=== PATIENT | male | born 1990 | race American Indian/Alaskan Native ===

== ENCOUNTER 2016-08-21 09:32 | Emergency (ER) | payer SELFPAY ==
[2016-08-21 10:21] VITALS: BP 127/74
--- NOTE | 2016-08-21 14:08 | Emergency Department Report ---
HPI - General Chief Complaint: Extremity Injury, Lower Time Seen by Provider: 08/21/16 13:45 - HPI HPI: 36-year-old male presents with right posterior knee pain 2 weeks. Patient states about 2 weeks ago he was playing basketball and jumped and landed on it and heard a pop in his knee. Patient states he's been okay otherwise and did not go get it checked. Patient states about a week ago he still didn't pain with certain movements of that knee. Patient states he only has pain when he jumps runs or apply physical activity. Patient denies fever/chills/nausea/vomiting/loss of sensation, fracture, dislocation, ED Past Medical Hx - Past Medical History Previous Medical History?: No - Surgical History Past Surgical History?: Yes Hx Appendectomy: Yes - Social History Smoking Status: Current Some Day Smoker Substance Use Type: Alcohol - Medications Home Medications: Home Medications Medication Instructions Recorded Confirmed Last Taken Type Cyclobenzaprine [Flexeril] 10 mg PO QHS PRN #20 tablet 08/21/16 Unknown Rx Ibuprofen [Motrin] 800 mg PO Q8HR PRN #30 tablet 08/21/16 Unknown Rx ED Review of Systems ROS: Stated complaint: RT KNEE PAIN Other details as noted in HPI Constitutional: denies: chills, fever, malaise, weakness Eyes: denies: eye pain, eye discharge, vision change ENT: denies: ear pain, throat pain Respiratory: denies: cough, shortness of breath, wheezing Cardiovascular: denies: chest pain, palpitations Endocrine: no symptoms reported Gastrointestinal: denies: abdominal pain, nausea, diarrhea, constipation, hematemesis Genitourinary: denies: urgency, dysuria, frequency, hematuria, discharge, testicular pain, testicular mass Musculoskeletal: arthralgia. denies: back pain, joint swelling, myalgia Skin: denies: rash, lesions Neurological: denies: headache, weakness, numbness, paresthesias, confusion, abnormal gait, vertigo Psychiatric: denies: anxiety, depression, auditory hallucinations Hematological/Lymphatic: denies: easy bleeding, easy bruising, swollen glands Physical Exam - Physical Exam Vital Signs: Vital Signs 08/21/16 10:19 Temperature 97.5 F L Pulse Rate 53 L Respiratory 16 Rate Blood Pressure 127/74 O2 Sat by Pulse 100 Oximetry Physical Exam: GENERAL: Alert and oriented x3, no apparent distress, Normal Gait, atraumatic. HEAD: Head is normocephalic and a-traumatic. EYES: Extra ocular muscles are intact. Pupils are equal, round, and reactive to light and accommodation. EARS: symetrical, atraumatic, gross auditory nml bilaterally. NOSE: Nose symetrical, Nontender,Nares appeared normal. MOUTH:Mouth is well hydrated and without lesions. Patent airways. NECK: Supple. Non edematous, No carotid bruits. No lymphadenopathy or thyromegaly. LUNGS: Symetrical with respiration, No wheezing, no rales or crackles, CTAB. HEART: S1, S2 present, regular rate and rhythm without murmur, no rubs, no gallops. ABDOMEN: No organomegaly was noted,Positive bowel sounds, soft, and non- distended. . Nontender to palpation on all Quadrants, NO CVA tenderness. EXTREMITIES/MUSCULOSKELETAL: No cyanosis, clubbing, rash, lesions or edema. Full ROM bilaterally. UE/LE Pulses 2+ bilaterally. LE and UE 5+ strength bilaterally. Nontender to palpation of the anterior/posterior knee. Mild tenderness to palpation of the lateral aspect of the knee. Knee is nonerythematous, nonedematous. Tenderness bilaterally. Valgus and varus maneuver shows no tenderness NEUROLOGIC: No focal Deficit, Cranial nerves II through XII are grossly intact. No loss of sensation, SKIN: Warm and dry, No lesions, No ulceration or induration present. ED Course Vital Signs 08/21/16 10:19 Temperature 97.5 F L Pulse Rate 53 L Respiratory 16 Rate Blood Pressure 127/74 O2 Sat by Pulse 100 Oximetry ED Medical Decision Making - Medical Decision Making 26-year-old male presents with arthralgia secondary to injury Vital signs are stable patient is in no acute or respiratory distress. . ED course: Patient has full range of motion of knee. Discussed with patient knee injury takes anywhere from 4-8 weeks to completely heal. Discussed follow-up with orthopedic. Discussed the patient to take medication as prescribed. Discussed rest of knee. Discussed knee exercises and no physical activity onto knees completely healed. Knee joints and ligaments are intact. Discussed continue heat compressions 3 times a day. Patient states he verbally understands and will follow up. Critical care attestation.: If time is entered above; I have spent that time in minutes in the direct care of this critically ill patient, excluding procedure time. ED Disposition Clinical Impression: Injury of knee, ligament Qualifiers: Encounter type: initial encounter Laterality: right Qualified Code(s): S89.91XA - Unspecified injury of right lower leg, initial encounter Arthralgia Qualifiers: Joint pain location: knee Laterality: right Qualified Code(s): M25.561 - Pain in right knee Disposition: DISCHARGED TO HOME OR SELFCARE Is pt being admited?: No Does the pt Need Aspirin: No Condition: Stable Instructions: Arthralgia (ED), Knee Exercises (GEN), Ligament Sprain (ED), Heat Pack Application (ED) Prescriptions: Cyclobenzaprine [Flexeril] 10 mg PO QHS PRN #20 tablet PRN Reason: Muscle Spasm Ibuprofen [Motrin] 800 mg PO Q8HR PRN #30 tablet PRN Reason: Pain Referrals: PRIMARY CAREMD [Primary Care Provider] - 3-5 Days MEI HERNANDEZ MD [Referring] - 3-5 Days OMAYRA GONZALEZ MD [Staff Physician] - 3-5 Days LUI DOMINGUEZ MD [Staff Physician] - 3-5 Days LO TORRES MD [Staff Physician] - 3-5 Days Forms: Work/School Release Form(ED) Time of Disposition: 14:15
== END 2016-08-21 14:48 | disposition home or self-care (01) ==
LOC: ED 09:32
DX: S89.91XA Unspecified injury of right lower leg, initial encounter (principal); F17.200 Nicotine dependence, unspecified, uncomplicated; X58.XXXA Exposure to other specified factors, initial encounter; Y93.67 Activity, basketball; Y99.9 Unspecified external cause status; Y92.39 Other specified sports and athletic area as the place of occurrence of the external cause
CPT/HCPCS: 99282